=== PATIENT | female | born 2000 | race Caucasian/White ===

== ENCOUNTER → 2020-12-11 | Outpatient (CLI) | payer BC ==
--- NOTE | 2020-12-11 10:06 | USB ---
Reason for exam: clinical finding. Indicated problem(s): palpable abnormality in the right breast. Physical Findings: Nurse Summary: 2cm nodule at 11 o'clock (nurse dw). US Breast RT Right complete breast ultrasound includes all four quadrants, the retroareolar region and axilla. Finding demonstrates no cystic or solid lesion greater than 0.50cm. These results were verbally communicated with the patient and result sheet given to the patient on 12/11/20. ASSESSMENT: Negative, BI-RAD 1 RECOMMENDATION: Clinical management of the right breast. Manage patient on a clinical basis.
== END ==
LOC: RADUSWWP 08:06
PROVIDERS: ATTEND Internal Medicine
DX: N63.10 Unspecified lump in the right breast, unspecified quadrant (principal)